=== PATIENT | female | born 1965 | race African-American/Black ===

== ENCOUNTER 2018-05-17 05:37 | Inpatient (IN) ==
[2018-05-17] MEDS ORDERED: ceFAZolin 1,000 MG VIAL ONE (07:02)
[2018-05-17] MEDS ORDERED: VANCOMYCIN 1,000 MG VIAL ONE (07:02)
[2018-05-17] MEDS ORDERED: FAMOTIDINE 20 MG TABLET PO ONE (07:25)
[2018-05-17] MEDS ORDERED: DIAZEPAM 5 MG TABLET PO ONE (07:25)
[2018-05-17] MEDS ORDERED: FAMOTIDINE 20 MG TABLET ONE (07:38)
[2018-05-17] MEDS ORDERED: DIAZEPAM 5 MG TABLET ONE (07:38)
[2018-05-17] MEDS: LACTATED RINGERS 1,000 ML IV SCH (07:50)
[2018-05-17] MEDS ORDERED: ROPIVACAINE 0.5% 30 ML VIAL ONE ×2 (07:56→10:39)
[2018-05-17] MEDS ORDERED: VANCOMYCIN INJ 1,000 MG in SODIUM CHLORIDE 0.9% 250 ML IV ONE (09:00)
[2018-05-17] MEDS ORDERED: CLINDAMYCIN INJ 900 MG in PREMIX 1 EACH IV ONE (09:00)
[2018-05-17] MEDS ORDERED: TRANEXAMIC ACID 1,000 MG/10 ML VIAL ONE (09:41)
[2018-05-17] MEDS ORDERED: ONDANSETRON 4 MG/2 ML VIAL IV PRN ×2 (10:28→10:42)
[2018-05-17] MEDS ORDERED: BISACODYL 10 MG SUPP RECTAL PRN (10:28)
[2018-05-17] MEDS ORDERED: NALOXONE 0.4 MG/ML VIAL IV PRN (10:28)
[2018-05-17] MEDS ORDERED: TEMAZEPAM 7.5 MG CAPSULE PO PRN (10:28)
[2018-05-17] MEDS ORDERED: MAGNESIUM HYDROXIDE SUSP 30 ML UDCUP PO PRN (10:28)
[2018-05-17] MEDS ORDERED: PROMETHAZINE 25 MG/1 ML VIAL IM PRN (10:28)
[2018-05-17] MEDS ORDERED: diphenhydrAMINE CAP 25 MG CAPSULE PO PRN (10:28)
[2018-05-17] MEDS ORDERED: LACTULOSE 20 GM/30 ML UDCUP PO PRN (10:28)
[2018-05-17] MEDS ORDERED: NAPROXEN 500 MG TABLET PO PRN (10:31)
[2018-05-17] MEDS ORDERED: MEPERIDINE 25 MG/1 ML VIAL ONE ×2 (10:38→11:31)
[2018-05-17] MEDS ORDERED: ONDANSETRON 4 MG/2 ML VIAL ONE ×2 (10:39→11:03)
[2018-05-17] MEDS ORDERED: LIDOCAINE 2% 20 ML VIAL ONE (10:39)
[2018-05-17] MEDS ORDERED: PROMETHAZINE 25 MG/1 ML VIAL ONE ×2 (10:39→11:31)
[2018-05-17] MEDS ORDERED: PROPOFOL 200 MG/20 ML VIAL IV ONE ×2 (10:39→11:02)
[2018-05-17] MEDS ORDERED: diphenhydrAMINE 50 MG/1 ML VIAL IV PRN (10:42)
[2018-05-17] MEDS ORDERED: PROMETHAZINE INJ 25 MG in SODIUM CHLORIDE 0.9% 50 ML IV PRN (10:42)
[2018-05-17] MEDS ORDERED: MORPHINE 10 MG/1 ML VIAL IV PRN (10:42)
[2018-05-17] MEDS ORDERED: SEVOFLURANE 1 UNIT/15 MINUTE INH ONE (11:02)
[2018-05-17] MEDS ORDERED: MIDAZOLAM 2 MG/2 ML VIAL ONE (11:02)
[2018-05-17] MEDS ORDERED: GLYCOPYRROLATE 0.4 MG/2 ML VIAL ONE (11:03)
[2018-05-17] MEDS ORDERED: fentaNYL 100 MCG/2 ML VIAL ONE (11:03)
[2018-05-17] MEDS ORDERED: NEOSTIGMINE 10 MG/10 ML VIAL ONE (11:04)
[2018-05-17] MEDS ORDERED: SUCCINYLCHOLINE 200 MG/10 ML VIAL ONE (11:04)
[2018-05-17] MEDS ORDERED: ACETAMINOPHEN 1,000 MG/100 ML VIAL IV ONE (11:04)
[2018-05-17] MEDS ORDERED: PHENYLEPHRINE 1 MG/10 ML SYRINGE IV ONE (11:04)
[2018-05-17] MEDS ORDERED: ROCURONIUM 100 MG/10 ML VIAL IV ONE (11:04)
[2018-05-17] MEDS: MEPERIDINE 25 MG/1 ML VIAL IV PRN ×2 (11:10→11:35)
[2018-05-17] MEDS ORDERED: HYDROmorphone 2 MG/1 ML VIAL ONE (11:10)
[2018-05-17 12:31] LABS: Apearance,Urine CLEAR (Clear); Bilirubin,Urine Negative (Negative); Blood, Urine Negative (Negative); Glucose,Urine (UA) Negative (Negative); Ketones,Urine Negative (Negative); Nitrite,Urine Negative (Negative); Protein,Urine Negative; RBC,Urine <1 /HPF (0-4); Squamous Epithelial Cell,Urine Occasional /HPF (0-10); Urine Color Straw (Yellow); Urine Urobilinogen < 2.0 EU/DL (0.2-1.0); WBC,Urine <1 /HPF (0-6)
[2018-05-17] MEDS: MORPHINE PCA 30 MG/30 ML SYRINGE IV SCH (12:52)
[2018-05-17] MEDS: CLINDAMYCIN INJ 900 MG in PREMIX 1 EACH IV SCH ×2 (16:02→22:28)
[2018-05-17] MEDS: DOCUSATE SODIUM 100 MG CAPSULE PO SCH (20:44)
[2018-05-17 22:00] LABS: Basophils % 0.1 % (0.0-0.8); Hematocrit 35.5 VOL% (35.7-47.0); Hemoglobin 11.6 GM/DL (12.0-16.0); Immature Granulocytes % 0.5 %; Immature Granulocytes Absolute 0.06 #; Lymphocytes # 0.8 10*3/uL (1.4-4.0); Lymphocytes % 7.5 % (21.3-54.2); Mean Corpuscular HGB Conc 32.7 GM/DL (32-36); Mean Corpuscular Hemoglobin 30 PG (27-34); Mean Corpuscular Volume 91.5 FL (87-102); Mean Platelet Volume 11.8 FL (9.6-12.0); Monocytes # 0.4 10*3/uL (0.11-0.8); Monocytes % 3.3 % (1.7-12.7); Neutrophils % 88.6 % (38.7-73.9); Platelet Count 167 T/CUMM (130-400); Red Blood Count 3.88 MC/CUMM (3.8-5.5); Red Cell Distribution Width 12.9 % (9.3-17.3); White Blood Count 11.3 T/CUMM (4-12)
[2018-05-17 22:30] LABS: Calcium 8.7 MG/DL (8.5-10.1); Potassium 4.6 MMOL/L (3.5-5.1)
[2018-05-18] MEDS: FONDAPARINUX 2.5 MG/0.5 ML SYRINGE SUBCUT SCH (00:38)
[2018-05-18 05:47] LABS: Basophils % 0.1 % (0.0-0.8); Eosinophils % 0.1 % (0.00-10.9); Hematocrit 33.3 VOL% (35.7-47.0); Hemoglobin 10.9 GM/DL (12.0-16.0); Immature Granulocytes % 0.4 %; Immature Granulocytes Absolute 0.04 #; Lymphocytes # 1.4 10*3/uL (1.4-4.0); Lymphocytes % 15.4 % (21.3-54.2); Mean Corpuscular HGB Conc 32.7 GM/DL (32-36); Mean Corpuscular Hemoglobin 30 PG (27-34); Mean Corpuscular Volume 91.2 FL (87-102); Mean Platelet Volume 11.4 FL (9.6-12.0); Monocytes # 0.6 10*3/uL (0.11-0.8); Monocytes % 6.1 % (1.7-12.7); Neutrophils # 7.1 10*3/uL (1.4-7.4); Neutrophils % 77.9 % (38.7-73.9); Platelet Count 154 T/CUMM (130-400); Red Blood Count 3.65 MC/CUMM (3.8-5.5); White Blood Count 9.1 T/CUMM (4-12)
[2018-05-18 05:58] LABS: Calcium 8.1 MG/DL (8.5-10.1); Osmolality,Calculated 272.7 MOS/KG (273-304); Potassium 3.9 MMOL/L (3.5-5.1)
[2018-05-18] MEDS: LACTATED RINGERS 1,000 ML IV SCH (09:21)
[2018-05-18] MEDS: DOCUSATE SODIUM 100 MG CAPSULE PO SCH ×2 (09:24→21:04)
[2018-05-18] MEDS: CHOLECALCIFEROL 5,000 UNIT TABLET PO SCH (09:24)
[2018-05-18] MEDS: ESTRADIOL 2 MG TABLET PO SCH (09:24)
[2018-05-18] MEDS: MORPHINE PCA 30 MG/30 ML SYRINGE IV SCH (17:36)
[2018-05-19] MEDS: FONDAPARINUX 2.5 MG/0.5 ML SYRINGE SUBCUT SCH (00:37)
[2018-05-19 05:50] LABS: Calcium 8.2 MG/DL (8.5-10.1); Osmolality,Calculated 270.8 MOS/KG (273-304); Potassium 3.8 MMOL/L (3.5-5.1)
[2018-05-19] MEDS: CHOLECALCIFEROL 5,000 UNIT TABLET PO SCH (08:52)
[2018-05-19] MEDS: ESTRADIOL 2 MG TABLET PO SCH (08:52)
[2018-05-19] MEDS: DOCUSATE SODIUM 100 MG CAPSULE PO SCH ×2 (08:53→21:15)
[2018-05-19] MEDS: MORPHINE 4 MG/1 ML VIAL IV PRN ×2 (10:58→21:12)
[2018-05-20] MEDS: FONDAPARINUX 2.5 MG/0.5 ML SYRINGE SUBCUT SCH (00:16)
[2018-05-20] MEDS: MORPHINE 4 MG/1 ML VIAL IV PRN (05:05)
[2018-05-20] MEDS: CHOLECALCIFEROL 5,000 UNIT TABLET PO SCH (08:14)
[2018-05-20] MEDS: ESTRADIOL 2 MG TABLET PO SCH (08:14)
[2018-05-20] MEDS: DOCUSATE SODIUM 100 MG CAPSULE PO SCH (08:14)
[2018-05-20 11:14] VITALS: BP 143/73
== END 2018-05-20 14:09 | DRG 470 ==
LOC: N.OR 05:37 → N.SDSINP 05:41 → N.3E 09:53
PROVIDERS: ADMIT Orthopaedic Surgery; ATTEND Orthopaedic Surgery

== ENCOUNTER 2020-07-20 09:02 | Inpatient (IN) ==
[2020-07-20 10:44] LABS: Hematocrit 37.7 VOL% (35.7-47.0); Hemoglobin 12.5 GM/DL (12.0-16.0); Immature Granulocytes % 0.5 %; Immature Granulocytes Absolute 0.02 #; Lymphocytes # 1.4 10*3/uL (1.4-4.0); Lymphocytes % 36.1 % (21.3-54.2); Mean Corpuscular HGB Conc 33.2 GM/DL (32-36); Mean Corpuscular Volume 87.5 FL (87-102); Mean Platelet Volume 11.4 FL (9.6-12.0); Monocytes % 5.9 % (1.7-12.7); Neutrophils % 57.5 % (38.7-73.9); Platelet Count 129 T/CUMM (130-400); Red Blood Count 4.31 MC/CUMM (3.8-5.5); White Blood Count 3.9 T/CUMM (4-12)
[2020-07-20 11:02] LABS: Alanine Aminotransferase 21 U/L (13-56); Albumin 2.8 G/DL (3.4-5.0); Alkaline Phosphatase 80 U/L (45-117); Aspartate Amino Transferase 23 U/L (0-37); Bilirubin,Total < 0.39 MG/DL (0.2-1.0); Blood Urea Nitrogen 8 MG/DL (7-18); Calcium 8.2 MG/DL (8.5-10.1); Estimated Glom Filtration Rate 91 ML/MIN; Glucose 98 MG/DL (74-106); Osmolality,Calculated 270.8 MOS/KG (273-304); Total Protein 6.6 G/DL (6.4-8.3)
[2020-07-20] MEDS ORDERED: IBUPROFEN 600 MG TABLET PO PRN (11:35)
[2020-07-20] MEDS ORDERED: ONDANSETRON 4 MG/2 ML VIAL IV PRN (11:35)
[2020-07-20 12:33] LABS: Band Neutrophils 1 % (0-10); Eosinophils 1 % (0-10); Lymphocytes 27 % (20-55); Segmented Neutrophils 67 % (50-85); Total Cells Counted 100
[2020-07-20 12:34] LABS: Hypochromasia 1+; Microcytosis Slight
[2020-07-20 12:35] LABS: Platelet Estimate Adequate
[2020-07-20] MEDS ORDERED: REMDESIVIR 200 MG in SODIUM CHLORIDE 0.9% 210 ML IV ONE (15:30)
[2020-07-20] MEDS: ACETAMINOPHEN 325 MG TABLET PO PRN (21:08)
[2020-07-20] MEDS: DOCUSATE SODIUM 100 MG CAPSULE PO SCH (21:08)
[2020-07-20] MEDS: methylPREDNISolone SOD SUC 40 MG/1 ML VIAL IV SCH (21:08)
[2020-07-20] MEDS ORDERED: MAGNESIUM SULF RIDER 2 GM in PREMIX 1 EACH IV ONE (21:33)
[2020-07-20] MEDS ORDERED: FUROSEMIDE 40 MG/4 ML VIAL IV ONE (21:33)
[2020-07-20] MEDS ORDERED: traMADol 50 MG TABLET PO PRN (21:37)
[2020-07-21] MEDS: AZITHROMYCIN INJ 500 MG in SODIUM CHLORIDE 0.9% 250 ML IV SCH ×2 (01:07→21:42)
[2020-07-21] MEDS: methylPREDNISolone SOD SUC 40 MG/1 ML VIAL IV SCH ×3 (05:50→21:37)
[2020-07-21 05:55] LABS: Hematocrit 39.4 VOL% (35.7-47.0); Immature Granulocytes % 0.3 %; Immature Granulocytes Absolute 0.01 #; Lymphocytes # 0.8 10*3/uL (1.4-4.0); Lymphocytes % 25.7 % (21.3-54.2); Mean Corpuscular Volume 89.3 FL (87-102); Mean Platelet Volume 11.4 FL (9.6-12.0); Monocytes % 2.7 % (1.7-12.7); Neutrophils % 71.3 % (38.7-73.9); Platelet Count 127 T/CUMM (130-400); Red Blood Count 4.41 MC/CUMM (3.8-5.5); Red Cell Distribution Width 12.8 % (9.3-17.3); White Blood Count 2.9 T/CUMM (4-12)
[2020-07-21 06:23] LABS: Albumin 2.5 G/DL (3.4-5.0); Bilirubin,Total 0.4 MG/DL (0.2-1.0); Calcium 8.5 MG/DL (8.5-10.1); Osmolality,Calculated 275.7 MOS/KG (273-304); Total Protein 7.2 G/DL (6.4-8.3)
[2020-07-21 07:25] LABS: Band Neutrophils 10 % (0-10); Lymphocytes 23 % (20-55); Platelet Estimate Adequate; Segmented Neutrophils 65 % (50-85); Total Cells Counted 100
[2020-07-21] MEDS: FUROSEMIDE 40 MG/4 ML VIAL IV SCH (09:38)
[2020-07-21] MEDS: PANTOPRAZOLE 40 MG TABLET PO SCH (09:39)
[2020-07-21] MEDS: POTASSIUM CHLORIDE 10 MEQ TABLET PO SCH (09:39)
[2020-07-21] MEDS: DOCUSATE SODIUM 100 MG CAPSULE PO SCH ×2 (09:39→21:36)
[2020-07-21] MEDS: REMDESIVIR 100 MG in SODIUM CHLORIDE 0.9% 100 ML IV SCH (09:40)
[2020-07-21] MEDS ORDERED: guaiFENesin 200 MG/10 ML UDCUP PO PRN (14:59)
[2020-07-22] MEDS: methylPREDNISolone SOD SUC 40 MG/1 ML VIAL IV SCH ×3 (05:28→21:40)
[2020-07-22 06:31] LABS: Basophils % 0.1 % (0.0-0.8); Hematocrit 37.8 VOL% (35.7-47.0); Hemoglobin 12.4 GM/DL (12.0-16.0); Immature Granulocytes % 0.6 %; Immature Granulocytes Absolute 0.04 #; Lymphocytes # 1.4 10*3/uL (1.4-4.0); Lymphocytes % 19.2 % (21.3-54.2); Mean Corpuscular HGB Conc 32.8 GM/DL (32-36); Mean Corpuscular Volume 88.9 FL (87-102); Mean Platelet Volume 11.4 FL (9.6-12.0); Monocytes % 5.8 % (1.7-12.7); Neutrophils % 74.3 % (38.7-73.9); Platelet Count 161 T/CUMM (130-400); Red Blood Count 4.25 MC/CUMM (3.8-5.5); Red Cell Distribution Width 12.8 % (9.3-17.3); White Blood Count 7.1 T/CUMM (4-12)
[2020-07-22 06:51] LABS: Calcium 8.4 MG/DL (8.5-10.1); Osmolality,Calculated 283.3 MOS/KG (273-304)
[2020-07-22] MEDS: ACETAMINOPHEN 325 MG TABLET PO PRN (07:37)
[2020-07-22 08:04] LABS: Anisocytosis Slight; Macrocytosis Slight; Platelet Estimate Normal
[2020-07-22] MEDS: DOCUSATE SODIUM 100 MG CAPSULE PO SCH ×2 (09:51→21:40)
[2020-07-22] MEDS: POTASSIUM CHLORIDE 10 MEQ TABLET PO SCH (09:51)
[2020-07-22] MEDS: PANTOPRAZOLE 40 MG TABLET PO SCH (09:51)
[2020-07-22] MEDS: REMDESIVIR 100 MG in SODIUM CHLORIDE 0.9% 100 ML IV SCH (09:52)
[2020-07-22] MEDS: FUROSEMIDE 40 MG/4 ML VIAL IV SCH (09:52)
[2020-07-22] MEDS: AZITHROMYCIN INJ 500 MG in SODIUM CHLORIDE 0.9% 250 ML IV SCH (21:40)
[2020-07-23] MEDS: methylPREDNISolone SOD SUC 40 MG/1 ML VIAL IV SCH ×3 (06:30→22:04)
[2020-07-23] MEDS: ACETAMINOPHEN 325 MG TABLET PO PRN (06:50)
[2020-07-23] MEDS: FUROSEMIDE 40 MG/4 ML VIAL IV SCH (08:17)
[2020-07-23] MEDS: POTASSIUM CHLORIDE 10 MEQ TABLET PO SCH (08:17)
[2020-07-23] MEDS: PANTOPRAZOLE 40 MG TABLET PO SCH (08:17)
[2020-07-23] MEDS: DOCUSATE SODIUM 100 MG CAPSULE PO SCH ×2 (08:17→22:04)
[2020-07-23] MEDS: REMDESIVIR 100 MG in SODIUM CHLORIDE 0.9% 100 ML IV SCH (08:59)
[2020-07-23] MEDS: AZITHROMYCIN INJ 500 MG in SODIUM CHLORIDE 0.9% 250 ML IV SCH (22:05)
[2020-07-24] MEDS: methylPREDNISolone SOD SUC 40 MG/1 ML VIAL IV SCH (05:16)
[2020-07-24] MEDS: FUROSEMIDE 40 MG/4 ML VIAL IV SCH (08:00)
[2020-07-24] MEDS: POTASSIUM CHLORIDE 10 MEQ TABLET PO SCH (08:01)
[2020-07-24] MEDS: DOCUSATE SODIUM 100 MG CAPSULE PO SCH (08:01)
[2020-07-24] MEDS: PANTOPRAZOLE 40 MG TABLET PO SCH (08:01)
[2020-07-24] MEDS: REMDESIVIR 100 MG in SODIUM CHLORIDE 0.9% 100 ML IV SCH (08:02)
[2020-07-24] MEDS ORDERED: methylPREDNISolone 4 MG TABLET PO SCH (08:30)
[2020-07-24 08:37] VITALS: BP 95/54
[2020-07-24] MEDS ORDERED: CHOLECALCIFEROL 1,000 UNIT TABLET PO SCH (09:00)
[2020-07-24] MEDS ORDERED: ASPIRIN EC 81 MG TABLET PO SCH (09:00)
[2020-07-24] MEDS ORDERED: ZINC GLUCONATE 50 MG TABLET PO SCH (09:00)
[2020-07-24] MEDS ORDERED: DOXYCYCLINE HYCLATE 100 MG CAPSULE PO SCH (09:00)
== END 2020-07-24 11:31 | disposition home or self-care (01) | DRG 177 ==
LOC: N.ED 09:02 → N.EDINP 11:35 → N.2E 13:24
PROVIDERS: ADMIT Family Medicine; ATTEND Family Medicine